=== PATIENT | female | born 1995 | race Caucasian/White ===

== ENCOUNTER 2016-11-04 18:13 | Outpatient (CLI) | payer BC, OTHER ==
[~2016-11-04] VITALS: Ht 162.6 cm; Wt 66.0 kg
[~2016-11-04 18:13] MED LIST: CHROMAGEN,1 CAPSULE PO; IBUPROFEN800 MG PO; PRENATAL VITAM1 EAC2 PO; PROZAC40 MG PO; TYLENOL EXTRA500 MG PO
[2016-11-04 18:59] VITALS: BP 118/71
[2016-11-04] MEDS ORDERED: ZOLOFT50 MG PO (18:59)
[2016-11-04 19:34] LABS: ADD MIUA? NO; BILIRUBIN NEGATIVE; BLOOD NEGATIVE; COLOR YELLOW ((YELLOW)); GLUCOSE (STRIP) 50; KETONES NEGATIVE; LEUKOCYTES NEGATIVE; NITRITE NEGATIVE; PROTEIN (STRIP) NEGATIVE; SPECIFIC GRAVITY 1.017 (1.000-1.030); UCUL ADDED? NO; UROBILINOGEN 0.2 MG/DL (0.2-1.0)
== END 2016-11-04 20:40 | disposition home or self-care (01) ==
LOC: LDRP-OP → 2WEST 18:14 → LDRP-OP 03-02 16:26
PROVIDERS: Advanced Practice Midwife
DX: O26.892 Other specified pregnancy related conditions, second trimester (principal); R10.9 Unspecified abdominal pain; Z3A.27 27 weeks gestation of pregnancy
CPT/HCPCS: 59025; 81003; 87086; G0378; J7120

== ENCOUNTER 2016-12-03 16:34 | Outpatient (CLI) | payer OTHER, BC ==
[~2016-12-03] VITALS: Ht 162.6 cm; Wt 69.4 kg
[~2016-12-03 16:34] MED LIST changes: +ZOLOFT50 MG PO
[2016-12-03 16:58] VITALS: BP 122/79
[2016-12-03 17:43] VITALS: BP 109/59
[2016-12-03 19:44] VITALS: BP 113/66
[2016-12-03 21:35] LABS: CANDIDA DNA PROBE NEGATIVE; GARDNERELLA DNA PROBE NEGATIVE; INTERNAL CONTROL VALID? YES
[2016-12-05 13:11] LABS: CHLAMYDIA TRACHOMATIS NEGATIVE; NEISSERIA GONORRHOEAE NEGATIVE
== END 2016-12-03 20:00 | disposition home or self-care (01) ==
LOC: LDRP-OP 16:34 → 2WEST 16:36 → LDRP-OP 03-02 20:50
PROVIDERS: Advanced Practice Midwife
DX: O60.03 Preterm labor without delivery, third trimester (principal); Z3A.31 31 weeks gestation of pregnancy
CPT/HCPCS: 59025; 81003; 82731; 87480; 87491; 87510; 87591; 87660; G0378; J7120

== ENCOUNTER 2017-02-05 14:14 | Inpatient (IN) | payer OTHER, BC ==
[2017-02-05] VITALS (14 sets, daily range): BP systolic 100–129; BP diastolic 50–81
[~2017-02-05] VITALS: Ht 162.6 cm; Wt 72.5 kg
[2017-02-05 15:11] LABS: EOSINOPHIL (%) 0.1 % (0-5); HEMATOCRIT 29.2 % (36.0-46.0); IMMATURE GRANULOCYTE (%) 0.6 % (0.0-0.7); IMMATURE GRANULOCYTE COUNT 0.1 K/uL; INSTRUMENT ABS NEUTROPHIL CT 7.7 K/uL; LYMPHOCYTE COUNT 1.8 K/uL (1.0-2.8); MCH 22.2 PG (29.0-34.0); MCHC 31.2 G/DL (30.0-36.0); MCV 71.4 FL (83-99); MEAN PLAT.VOLUME 10.6 uM^3 (9.5-12.4); MONOCYTE (%) 8.1 % (3-12); MONOCYTE COUNT 0.9 K/uL (0-0.8); NEUTROPHIL (%) 73.6 % (45-76); NEUTROPHIL COUNT 7.7 K/uL (1.8-6.4); PLATELET COUNT 321 K/uL (156-360); RBC DIS.WIDTH-CV 17.2 % (11.8-14.6); RBC DIS.WIDTH-SD 43.5 % (39-53); RED BLOOD COUNT 4.09 M/uL (3.80-5.20); WHITE BLOOD COUNT 10.5 K/uL (4.1-10.2)
[2017-02-06 06:43] LABS: EOSINOPHIL (%) 0 % (0-5); HEMATOCRIT 27.4 % (36.0-46.0); IMMATURE GRANULOCYTE (%) 0.4 % (0.0-0.7); IMMATURE GRANULOCYTE COUNT 0.1 K/uL; INSTRUMENT ABS NEUTROPHIL CT 13.1 K/uL; LYMPHOCYTE COUNT 1.6 K/uL (1.0-2.8); MCHC 30.7 G/DL (30.0-36.0); MCV 71.7 FL (83-99); MEAN PLAT.VOLUME 10.8 uM^3 (9.5-12.4); MONOCYTE (%) 7.1 % (3-12); MONOCYTE COUNT 1.1 K/uL (0-0.8); NEUTROPHIL (%) 82.1 % (45-76); NEUTROPHIL COUNT 13.1 K/uL (1.8-6.4); PLATELET COUNT 289 K/uL (156-360); RBC DIS.WIDTH-CV 17.3 % (11.8-14.6); RBC DIS.WIDTH-SD 43.9 % (39-53); RED BLOOD COUNT 3.82 M/uL (3.80-5.20); WHITE BLOOD COUNT 15.9 K/uL (4.1-10.2)
[2017-02-06 07:25] VITALS: BP 116/64
[2017-02-06 14:37] VITALS: BP 119/72
[2017-02-06 22:28] VITALS: BP 119/68
[2017-02-07 07:35] VITALS: BP 111/71
[2017-02-07] MEDS ORDERED: CHROMAGEN,1 CAPSULE PO (09:31)
== END 2017-02-07 13:35 | disposition home or self-care (01) | DRG 775 ==
LOC: LDRP-OP 14:14 → 2WEST 14:16 → LDRP-OP 03-02 20:23
PROVIDERS: Advanced Practice Midwife
PROC: 10E0XZZ Delivery of Products of Conception, External Approach (ICD-10-PCS; principal; 2017-02-05)
PROC: 0W8NXZZ Division of Female Perineum, External Approach (ICD-10-PCS; principal; 2017-02-05)
PROC: 10907ZC Drainage of Amniotic Fluid, Therapeutic from Products of Conception, Via Natural or Artificial Opening (ICD-10-PCS; 2017-02-05)
DX: O76 Abnormality in fetal heart rate and rhythm complicating labor and delivery (principal); O99.344 Other mental disorders complicating childbirth; F32.9 Major depressive disorder, single episode, unspecified; O48.0 Post-term pregnancy; O69.81X0 Labor and delivery complicated by cord around neck, without compression, not applicable or unspecified; O77.0 Labor and delivery complicated by meconium in amniotic fluid; O99.824 Streptococcus B carrier state complicating childbirth; O99.02 Anemia complicating childbirth; D50.9 Iron deficiency anemia, unspecified; Z3A.40 40 weeks gestation of pregnancy; Z37.0 Single live birth; Z87.440 Personal history of urinary (tract) infections; Z83.3 Family history of diabetes mellitus; Z81.8 Family history of other mental and behavioral disorders; Z80.52 Family history of malignant neoplasm of bladder
CPT/HCPCS: 85025; J2540; J7120

== ENCOUNTER 2017-02-28 08:55 | Emergency (ER) | payer OTHER, BC ==
[~2017-02-28] VITALS: Ht 162.6 cm; Wt 62.6 kg
[2017-02-28 10:10] LABS: CHLORIDE 109 mEq/L (99-109); EOSINOPHIL (%) 1.4 % (0-5); EOSINOPHIL COUNT 0.1 K/uL (0-0.3); HEMATOCRIT 33.5 % (36.0-46.0); IMMATURE GRANULOCYTE (%) 0.2 % (0.0-0.7); INSTRUMENT ABS NEUTROPHIL CT 3.4 K/uL; LYMPHOCYTE COUNT 1.9 K/uL (1.0-2.8); MCH 22.2 PG (29.0-34.0); MCHC 29.9 G/DL (30.0-36.0); MCV 74.3 FL (83-99); MEAN PLAT.VOLUME 9.6 uM^3 (9.5-12.4); MONOCYTE (%) 7.9 % (3-12); MONOCYTE COUNT 0.5 K/uL (0-0.8); NEUTROPHIL (%) 58.5 % (45-76); NEUTROPHIL COUNT 3.4 K/uL (1.8-6.4); POTASSIUM 3.9 mEq/L (3.7-5.4); RBC DIS.WIDTH-CV 20.5 % (11.8-14.6); RBC DIS.WIDTH-SD 54.1 % (39-53); RED BLOOD COUNT 4.51 M/uL (3.80-5.20); SODIUM 141 mEq/L (136-147); WHITE BLOOD COUNT 5.8 K/uL (4.1-10.2)
[2017-02-28 10:12] LABS: GLUCOSE 83 mg/dL (70-99); PLATELET COUNT 474 K/uL (156-360)
[2017-02-28 10:13] LABS: ANION GAP 9 MEQ/L (2-14)
[2017-02-28 10:15] LABS: SERUM ETHYL ALCOHOL < 10 mg/dL
[2017-02-28 10:16] LABS: GFR ESTIMATE (CALCULATED) > 59 mL/min/
[2017-02-28 10:17] LABS: UREA NITROGEN (BUN) 9 mg/dL (9-23)
[2017-02-28 11:51] VITALS: BP 120/70
== END 2017-02-28 11:52 | disposition home or self-care (01) ==
LOC: EME 08:55
PROVIDERS: Emergency Medicine
DX: F53 Mental and behavioral disorders associated with the puerperium, not elsewhere classified (principal); F33.2 Major depressive disorder, recurrent severe without psychotic features
CPT/HCPCS: 80048; 81003; 85025; 90839; 99281; 99285; G0480

== ENCOUNTER → 2017-12-16 | Emergency (ER) | payer BC ==
[~2017-12-16] VITALS: Ht 162.6 cm; Wt 62.4 kg
[2017-12-16 22:26] VITALS: BP 130/91
== END | disposition home or self-care (01) ==
LOC: EME 22:12
DX: S71.112A Laceration without foreign body, left thigh, initial encounter (principal); X78.9XXA Intentional self-harm by unspecified sharp object, initial encounter; Z91.5 Personal history of self-harm
CPT/HCPCS: 99281; 99284

== ENCOUNTER 2017-12-31 10:20 | Emergency (ER) | payer BC ==
[~2017-12-31] VITALS: Ht 162.6 cm; Wt 61.2 kg
[2017-12-31] MEDS ORDERED: KEFLEX500 MG PO (12:43)
[2017-12-31 13:00] VITALS: BP 115/87
== END 2017-12-31 13:03 | disposition home or self-care (01) ==
LOC: EME 10:20
DX: S71.112A Laceration without foreign body, left thigh, initial encounter (principal); X78.1XXA Intentional self-harm by knife, initial encounter; F32.9 Major depressive disorder, single episode, unspecified; F42.9 Obsessive-compulsive disorder, unspecified
CPT/HCPCS: 99281; 99283

== ENCOUNTER 2018-01-04 00:12 | Emergency (ER) | payer BC ==
[~2018-01-04] VITALS: Ht 162.6 cm; Wt 61.6 kg
[~2018-01-04 00:12] MED LIST changes: +KEFLEX500 MG PO
[2018-01-04 03:00] VITALS: BP 149/96
== END 2018-01-04 03:10 | disposition home or self-care (01) ==
LOC: EME 00:12
PROC: 0HQJXZZ Repair Left Upper Leg Skin, External Approach (ICD-10-PCS; principal; 2018-01-04)
DX: S71.112A Laceration without foreign body, left thigh, initial encounter (principal); F33.2 Major depressive disorder, recurrent severe without psychotic features; X78.9XXA Intentional self-harm by unspecified sharp object, initial encounter; F41.9 Anxiety disorder, unspecified; F42.9 Obsessive-compulsive disorder, unspecified
CPT/HCPCS: 90839; 99281; 99283